=== PATIENT | female | born 1955 | race African-American/Black ===

== ENCOUNTER 2019-12-22 19:55 | Emergency (ER) | payer OTHER ==
[~2019-12-22] VITALS: Ht 172.7 cm; Wt 72.6 kg
[2019-12-22 20:45] LABS: Basophils # (auto) 0.1 10 ^3/uL (0-0.2); Basophils % (auto) 0.9 % (0.0-2.0); Eosinophils # (auto) 0 10 ^3/uL (0-0.8); Eosinophils % (auto) 0.5 % (0.0-7.0); Hematocrit 39.4 % (36.0-46.0); Lymphocytes # (auto) 0.8 10 ^3/uL (0.4-5.4); Lymphocytes % (auto) 14.9 % (10.0-50.0); Mean Corpuscular Hemoglobin 31.4 pg (28.0-32.0); Monocytes # (auto) 0.5 10 ^3/uL (0-1.3); Monocytes % (auto) 8.6 % (0.0-12.0); Neutrophils # (auto) 4.2 10 ^3/uL (1.6-8.6); Neutrophils % (auto) 75.1 % (37.0-80.0); Nucleated Red Blood Cells % 0.1 %; Platelet Count (auto) 233 10^3/uL (140-450); Red Blood Cells 4.15 10^6/uL (4.0-5.20); Red Cell Distribution Width 13.7 % (11.8-14.3); White Blood Cell 5.6 10^3/uL (4.4-10.8)
[2019-12-22 21:01] LABS: Calcium 9.7 mg/dL (8.5-10.1); Potassium 3.5 mmol/L (3.5-5.1)
[2019-12-22 21:04] LABS: Bilirubin, Total 0.4 mg/dL (0.2-1.0); Total Protein 7.8 g/dL (6.4-8.2)
[2019-12-22] MEDS ORDERED: cefTRIAXone 1GM/50ML D5W 50 ML IV ONE (21:15)
[2019-12-22] MEDS ORDERED: SODIUM CHLORIDE 0.9% 1,000 ML IV ONE (21:15)
[2019-12-22] MEDS ORDERED: metroNIDAZOLE 500MG/100ML 100 ML IV ONE (21:15)
[2019-12-22 22:27] LABS: Urine Bacteria FEW /hpf (None Seen); Urine Blood TRACE /uL (Negative); Urine Mucus FEW (None Seen); Urine Specific Gravity 1.022 (1.001-1.035); Urine WBC 1 /hpf (0 - 5)
[2019-12-22 22:37] LABS: Amylase 115 U/L (25-115); Lipase 35 U/L (73-393)
[2019-12-22] MEDS ORDERED: MORPHINE SULFATE 4 MG/ML SYR/VIAL IV ONE (23:00)
[2019-12-22] MEDS ORDERED: ONDANSETRON HCL 4 MG/2 ML VIAL IV ONE (23:00)
[2019-12-23 00:30] VITALS: BP 138/58
[2019-12-24] MEDS ORDERED: ACET-1156 PO (16:12)
[2019-12-24] MEDS ORDERED: HYDR12.56 PO (16:12)
[2019-12-24] MEDS ORDERED: DICL-176 PO (17:17)
[2019-12-24] MEDS ORDERED: LOPE2CAP PO (17:17)
[2019-12-24] MEDS ORDERED: HYDR25TA4 PO (17:17)
[2019-12-24] MEDS ORDERED: GABA250S2 PO (17:17)
[2019-12-24] MEDS ORDERED: ONDA-144 PO (17:17)
[2019-12-24] MEDS ORDERED: TELM80TA PO (17:17)
[2019-12-24] MEDS ORDERED: ZOLP10TA PO (17:17)
[2019-12-24] MEDS ORDERED: HYDR200T36 PO (17:17)
== END 2019-12-23 01:20 | disposition home or self-care (01) ==
LOC: ER 20:04 → EEVIPCON 20:04 → ER 12-23 01:20
DX: K52.9 Noninfective gastroenteritis and colitis, unspecified (principal); G89.29 Other chronic pain; M54.9 Dorsalgia, unspecified; R51 Headache; E11.9 Type 2 diabetes mellitus without complications; I10 Essential (primary) hypertension; R55 Syncope and collapse; Z88.5 Allergy status to narcotic agent
CPT/HCPCS: 36415; 70450; 71250; 72125; 74176; 80053; 81001; 82150; 83690; 85025; 93005; 96365; 96368; 96375; 99285; J0696; J2270; J2405; J3490; J7030

== ENCOUNTER 2019-12-24 11:24 | Inpatient (IN) | payer OTHER ==
[~2019-12-24] VITALS: Ht 172.7 cm; Wt 81.7 kg
[2019-12-24] MEDS ORDERED: SODIUM CHLORIDE 0.9% 500 ML IV ONE (11:42)
[2019-12-24] MEDS ORDERED: ONDANSETRON HCL 4 MG/2 ML VIAL IV ONE (11:45)
[2019-12-24] MEDS ORDERED: HYDROmorphone HCL 2 MG/ML VL IV ONE (11:45)
[2019-12-24] MEDS ORDERED: MORPHINE SULF INJ 2 MG/ML SYRINGE 1ML IV PRN (12:30)
[2019-12-24] MEDS ORDERED: NITROGLYCERIN 0.4 MG SL TAB SL PRN (12:30)
[2019-12-24 15:52] VITALS: BP 169/95
[2019-12-24] MEDS ORDERED: ACET-1156 PO (16:12)
[2019-12-24] MEDS ORDERED: HYDR12.56 PO (16:12)
--- NOTE | 2019-12-24 17:00 | NUR ---
MS admit from [facility] admitted to tele/MS after SBAR received. Patient oriented to Charlene Jones, primary RN, unit, room 203, bed, and unit policies regarding patient care and visiting hours. Patient weighed by bedscale and encouraged to call if they need something. All questions and concerns addressed, patient verbalized understanding. Pt reports pain to rt hip and to rt leg 8/10, will medicate pt as order, will continue to monitor pt.
[2019-12-24] MEDS ORDERED: LOPE2CAP PO (17:17)
[2019-12-24] MEDS ORDERED: HYDR200T36 PO (17:17)
[2019-12-24] MEDS ORDERED: TELM80TA PO (17:17)
[2019-12-24] MEDS ORDERED: ZOLP10TA PO (17:17)
[2019-12-24] MEDS ORDERED: DICL-176 PO (17:17)
[2019-12-24] MEDS ORDERED: HYDR25TA4 PO (17:17)
[2019-12-24] MEDS ORDERED: GABA250S2 PO (17:17)
[2019-12-24] MEDS ORDERED: ONDA-144 PO (17:17)
[2019-12-24] MEDS: traMADol HCL 50 MG TAB PO PRN (17:54)
[2019-12-24 18:00] VITALS: BP 157/93
--- NOTE | 2019-12-24 18:49 | NUR ---
Paged Dr. Neal as per pt's request, pt is requesting pain medication, pt states that the current pain medication regiment is not working to control her pain, awaiting call back from doctor.
--- NOTE | 2019-12-24 18:58 | NUR ---
Received call back from Dr. Neal, orders received for Rembrandt 10/325mg 1 PO Q4h PRN, verified allergies with patient as per patient Rembrandt does not give her any allergies.
[2019-12-24] MEDS: HYDROcodone-ACET 10/325MG TAB PO PRN ×2 (19:04→23:24)
--- NOTE | 2019-12-24 19:20 | NUR ---
Opening Shift Note Assumed care of patient from TALIB Chang, awake and alert. No S/S of distress/SOB. Instructed on POC and to call for assist PRN, Bed in lowest position, brakes locked, side rails up x2, call light within reach. Patient is an inmate and guard is bedside. Will continue to monitor for changes Q1hr and PRN.
[2019-12-24 21:49] VITALS: BP 164/69
[2019-12-24] MEDS: methylPREDNISolone SOD SUCC 125 MG/2 ML VL IV SCH (22:18)
[2019-12-24] MEDS: NAPROXEN 500 MG TAB PO SCH (22:19)
[2019-12-24] MEDS: CARISOPRODOL 350 MG TAB PO PRN (22:19)
[2019-12-24] MEDS: cloNIDine HCL 0.1 MG TAB PO PRN (22:19)
[2019-12-25] MEDS: traMADol HCL 50 MG TAB PO PRN ×3 (03:14→22:16)
--- NOTE | 2019-12-25 05:00 | NUR ---
Per Protocol, due to patient coming from correction, a Cammie covid swab was done and walked to the lab @0500.
[2019-12-25 05:25] VITALS: BP 120/74
[2019-12-25] MEDS: HYDROcodone-ACET 10/325MG TAB PO PRN ×2 (06:00→16:32)
[2019-12-25 08:55] VITALS: BP 127/71
[2019-12-25] MEDS: methylPREDNISolone SOD SUCC 125 MG/2 ML VL IV SCH ×2 (10:04→22:15)
[2019-12-25] MEDS: ENOXAPARIN SOD 30 MG/0.3 ML SYRINGE SC SCH (10:04)
[2019-12-25] MEDS: CARISOPRODOL 350 MG TAB PO PRN ×2 (10:05→22:21)
[2019-12-25] MEDS: NAPROXEN 500 MG TAB PO SCH (10:05)
[2019-12-25] MEDS: PANTOPRAZOLE 40 MG TAB PO SCH (10:05)
[2019-12-25 13:00] VITALS: BP 130/92
--- NOTE | 2019-12-25 13:33 | NUR ---
Dr. Neal at bed side to see pt, doctor discussed the plan of care with pt.
[2019-12-25] MEDS: KETOROLAC TROMETH 30 MG/ML 1ML VIAL IV PRN (14:57)
--- NOTE | 2019-12-25 14:58 | NUR ---
Pt reports pain to rt hip and rt leg 09/15, pt requesting the new pain medication that the doctor ordered, will medicate pt as ordered.
[2019-12-25 17:02] VITALS: BP 148/78
[2019-12-25 22:00] VITALS: BP 133/75
[2019-12-26] MEDS: HYDROcodone-ACET 10/325MG TAB PO PRN ×2 (03:40→08:14)
[2019-12-26 05:00] VITALS: BP 154/84
[2019-12-26] MEDS: KETOROLAC TROMETH 30 MG/ML 1ML VIAL IV PRN (06:04)
[2019-12-26 08:00] VITALS: BP 157/93
[2019-12-26] MEDS: ENOXAPARIN SOD 30 MG/0.3 ML SYRINGE SC SCH (08:13)
[2019-12-26] MEDS: PANTOPRAZOLE 40 MG TAB PO SCH (08:13)
[2019-12-26] MEDS: cloNIDine HCL 0.1 MG TAB PO PRN (08:14)
[2019-12-26] MEDS: methylPREDNISolone SOD SUCC 125 MG/2 ML VL IV SCH ×2 (08:14→22:32)
[2019-12-26 09:00] VITALS: BP 157/93
[2019-12-26] MEDS: traMADol HCL 50 MG TAB PO PRN (12:10)
[2019-12-26 12:46] VITALS: BP 146/72
[2019-12-26] MEDS: HYDROcodone-ACET 10/325MG TAB PO SCH ×3 (14:00→22:04)
[2019-12-26] MEDS: CARISOPRODOL 350 MG TAB PO SCH ×2 (14:09→21:43)
[2019-12-26] MEDS ORDERED: LORazepam 2MG/ML-1ML VIAL IV PRN (14:15)
[2019-12-26] MEDS: KETOROLAC TROMETH 30 MG/ML 1ML VIAL IV SCH ×2 (15:28→18:00)
--- NOTE | 2019-12-26 16:30 | NUR ---
Rounds Patient is comfortably resting in bed, no s/s of distress noted/stated. Will continue to monitor PRN. Guard at bedside for safety.
[2019-12-26 17:00] VITALS: BP 158/96
--- NOTE | 2019-12-26 18:55 | NUR ---
closing shift note Patient is comfortably resting in bed, no s/s of distress/sob noted/stated. Bed at lowest locked position and call light within reach. Guard at bedside for safety. Will endorse care to NOC RN.
[2019-12-26 21:40] VITALS: BP 128/74
--- NOTE | 2019-12-26 21:43 | NUR ---
PT'S IV IS LEAKING UPON FLUSH AND DC'D WITH CATH TIP INTACT. WILL START NEW IV.
--- NOTE | 2019-12-26 22:32 | NUR ---
NEW IV STARTED IN LEFT HAND 22G. PT DIALLO WELL.
[2019-12-27] VITALS (7 sets, daily range): BP systolic 155–171; BP diastolic 65–90
[2019-12-27] MEDS: KETOROLAC TROMETH 30 MG/ML 1ML VIAL IV SCH ×4 (00:23→18:00)
[2019-12-27] MEDS: traMADol HCL 50 MG TAB PO PRN ×2 (04:14→16:37)
[2019-12-27] MEDS: CARISOPRODOL 350 MG TAB PO SCH ×3 (06:06→22:00)
[2019-12-27] MEDS: HYDROcodone-ACET 10/325MG TAB PO SCH ×6 (06:06→22:35)
[2019-12-27] MEDS: methylPREDNISolone SOD SUCC 125 MG/2 ML VL IV SCH ×2 (09:05→22:00)
[2019-12-27] MEDS: PANTOPRAZOLE 40 MG TAB PO SCH (09:05)
[2019-12-27] MEDS: ENOXAPARIN SOD 30 MG/0.3 ML SYRINGE SC SCH (09:06)
--- NOTE | 2019-12-27 10:17 | NUR ---
Nutrition Assessment Notes please see attached link for complete assessment Est Energy needs BW 79 [id number] kcals (23-25 kcal/kgBW), Est Protein needs: 79-86 gms/day (1.0-1.1gm/kgBW). Will continue to monitor and reassess prn. Addendum: 12/27/19 at [address] Amended: Links added.
[2019-12-27] MEDS: cloNIDine HCL 0.1 MG TAB PO PRN (16:36)
--- NOTE | 2019-12-27 19:05 | NUR ---
Opening Shift Note Assumed care of patient from day shift RN patient awake and alert oriented x4. No S/S of distress/SOB or pain. Instructed on POC and to call for assist PRN, safety measures in place bed in lowest position side rails up x2 and call light with in reach. will continue to monitor for changes Q1hr and PRN.
[2019-12-28] MEDS: KETOROLAC TROMETH 30 MG/ML 1ML VIAL IV SCH ×3 (00:08→12:17)
--- NOTE | 2019-12-28 00:20 | NUR ---
Paged Dr. Neal, patient complained of itching to right lower leg, chest and back, with some redness and swelling to right lower leg.
--- NOTE | 2019-12-28 01:18 | NUR ---
Reassessed patient. Patient states less itching and right lower leg has no redness and minimal swelling.
[2019-12-28 05:00] VITALS: BP 159/83
[2019-12-28] MEDS: CARISOPRODOL 350 MG TAB PO SCH (06:00)
[2019-12-28] MEDS: HYDROcodone-ACET 10/325MG TAB PO SCH ×2 (06:40→09:54)
[2019-12-28 09:00] VITALS: BP 176/94
[2019-12-28] MEDS: PANTOPRAZOLE 40 MG TAB PO SCH (09:52)
[2019-12-28] MEDS: methylPREDNISolone SOD SUCC 125 MG/2 ML VL IV SCH (09:54)
[2019-12-28] MEDS: cloNIDine HCL 0.1 MG TAB PO PRN (09:55)
[2019-12-28] MEDS ORDERED: ENOXAPARIN SOD 40 MG/0.4 ML SYRINGE SC SCH (10:00)
[2019-12-28] MEDS ORDERED: PRED20TA2 PO (12:43)
[2019-12-28] MEDS ORDERED: DICL-176 PO (12:43)
[2019-12-28 13:00] VITALS: BP 147/81
[2019-12-28 17:01] VITALS: BP 147/66
--- NOTE | 2019-12-28 17:55 | NUR ---
Discharge instructions given as ordered. Encourage to follow up with PMD as instructed. All questions and concerns addressed. Patient verbalized understanding. Medication reconciliation form completed and copy given to guard. Home medications held in Pharmacy returned to guard. IV removed with catheter intact and pressure dressing applied. Patient awaiting transport.
== END 2019-12-28 17:40 | DRG 552 ==
LOC: ER 11:24 → EEVIPCON 11:24 → EDBD 11:24 → OVERFLOW 11:25 → CENTRAL 15:59
PROVIDERS: ADMIT Internal Medicine; ATTEND Internal Medicine
DX: M51.16 Intervertebral disc disorders with radiculopathy, lumbar region (principal); M48.56XA Collapsed vertebra, not elsewhere classified, lumbar region, initial encounter for fracture; R19.7 Diarrhea, unspecified; Z20.828 Contact with and (suspected) exposure to other viral communicable diseases; E11.9 Type 2 diabetes mellitus without complications; I10 Essential (primary) hypertension; M06.9 Rheumatoid arthritis, unspecified; F32.9 Major depressive disorder, single episode, unspecified; Z98.51 Tubal ligation status
CPT/HCPCS: 36415; 72110; 72148; 73502; 87426; 93971; G0378; J1885; J2405

== ENCOUNTER 2019-12-29 22:29 | Emergency (ER) | payer OTHER ==
[~2019-12-29] VITALS: Ht 170.2 cm; Wt 59.0 kg
[~2019-12-29 22:29] MED LIST: ACET-1156 PO; DICL-176 PO; GABA250S2 PO; HYDR12.56 PO; HYDR200T36 PO; HYDR25TA4 PO; LOPE2CAP PO; ONDA-144 PO; PRED20TA2 PO; TELM80TA PO; ZOLP10TA PO
[2019-12-29] MEDS ORDERED: cloNIDine HCL 0.1 MG TAB PO ONE (22:45)
[2019-12-29 23:32] LABS: Basophils # (auto) 0 10 ^3/uL (0-0.2); Basophils % (auto) 0.2 % (0.0-2.0); Eosinophils # (auto) 0 10 ^3/uL (0-0.8); Eosinophils % (auto) 0.2 % (0.0-7.0); Hematocrit 43.9 % (36.0-46.0); Hemoglobin 14.6 g/dL (12.2-16.2); Lymphocytes % (auto) 23.5 % (10.0-50.0); Mean Corpuscular Hemoglobin 31.9 pg (28.0-32.0); Mean Corpuscular Hgb Conc. 33.3 g/dL (32.0-36.0); Monocytes # (auto) 0.9 10 ^3/uL (0-1.3); Monocytes % (auto) 10.3 % (0.0-12.0); Neutrophils # (auto) 5.5 10 ^3/uL (1.6-8.6); Neutrophils % (auto) 65.8 % (37.0-80.0); Nucleated Red Blood Cells % 0.1 %; Platelet Count (auto) 275 10^3/uL (140-450); Red Blood Cells 4.58 10^6/uL (4.0-5.20); Red Cell Distribution Width 13.8 % (11.8-14.3); White Blood Cell 8.4 10^3/uL (4.4-10.8)
[2019-12-29 23:40] LABS: INR 0.94 (0.9-1.15); Partial Thromboplastin Time 24.5 sec (23.0-31.2)
[2019-12-29 23:43] LABS: Alanine Aminotransferase 29 U/L (13-56); Albumin 3.5 g/dL (3.4-5.0); Anion Gap 7 (5-15); Aspartate Aminotransferase 26 U/L (15-37); BUN/Creatinine Ratio 22.3; Blood Urea Nitrogen 27 mg/dL (7-18); Calcium 9.4 mg/dL (8.5-10.1); Carbon Dioxide 19 mmol/L (21-32); Chloride 107 mmol/L (98-107); GFR African American 58 mL/min; GFR Non-African American 48 mL/min; Glucose 83 mg/dL (74-106); Magnesium 2.4 mg/dL (1.6-2.6); Potassium 4.2 mmol/L (3.5-5.1); Sodium 133 mmol/L (136-145)
[2019-12-29 23:46] LABS: Alkaline Phosphatase 65 U/L (45-117); Bilirubin, Total 0.3 mg/dL (0.2-1.0); Total Protein 7.3 g/dL (6.4-8.2)
[2019-12-30] MEDS ORDERED: SODIUM CHLORIDE 0.9% 1,000 ML IV ONE ×2
[2019-12-30 00:32] LABS: Amylase 98 U/L (25-115); Lipase 73 U/L (73-393)
[2019-12-30 00:34] LABS: Urine Bacteria FEW /hpf (None Seen); Urine Blood 1+ /uL (Negative); Urine Mucus FEW (None Seen); Urine Specific Gravity 1.028 (1.001-1.035); Urine WBC 3 /hpf (0 - 5)
[2019-12-30] MEDS ORDERED: KETOROLAC TROMETH 30 MG/ML 1ML VIAL IV ONE (01:00)
[2019-12-30 01:06] VITALS: BP 145/91
[2019-12-30] MEDS ORDERED: HCTZ 25 MG TAB PO ONE (01:15)
== END 2019-12-30 01:48 ==
LOC: EDBD 22:29 → ER 22:29 → EEVIPCON 22:29 → ER 12-30 01:48
DX: I16.0 Hypertensive urgency (principal); M54.40 Lumbago with sciatica, unspecified side; G89.29 Other chronic pain; E11.9 Type 2 diabetes mellitus without complications; Z98.890 Other specified postprocedural states; Z98.51 Tubal ligation status; Z79.899 Other long term (current) drug therapy; Z88.5 Allergy status to narcotic agent
CPT/HCPCS: 36415; 70450; 71045; 80053; 81001; 82150; 83690; 83735; 83880; 84484; 85025; 85610; 85730; 93005; 96361; 96374; 99285; J1885; J7030